=== PATIENT | male | born 1995 | race Caucasian/White ===

== ENCOUNTER 2018-01-12 14:11 | Emergency (ER) | payer BC ==
[2018-01-12 14:59] VITALS: BP 109/63
[2018-01-12] MEDS ORDERED: HYDROcodone/ACETAMIN 5-325 MG* 1 TAB PO ONE (15:07)
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
== END 2018-01-12 15:17 | disposition home health service (06) ==
LOC: UCCORT 14:11
CPT/HCPCS: 99202; G0463

== ENCOUNTER 2019-03-12 11:58 | Emergency (ER) | payer BC ==
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
[2019-03-12 14:14] LABS: Hematocrit 50 % (42-52); Hemoglobin 18.1 g/dL (14.0-18.0); Mean Corpuscular HGB Conc 36 g/dL (31-36); Mean Corpuscular Hemoglobin 30 pg (27-31); Mean Corpuscular Volume 83 fL (80-94); Mean Platelet Volume 8.4 fL (7.4-10.4); Platelet Count 237 10^3/uL (150-450); Red Blood Count 6.02 10^6 /uL (4.18-5.48); Red Cell Distribution Width 13 % (10-15); White Blood Count 7.5 10^3/uL (3.5-10.8)
[2019-03-12 14:24] LABS: Albumin 5.1 g/dL (3.2-5.2); Albumin/Globulin Ratio 1.6 (1-3); BUN/Creatinine Ratio 18.2 (8-20); Calcium 10.7 mg/dL (8.6-10.3); EGFR African American 128.7 (>60); EGFR Non-African American 106.4 (>60); Globulin 3.2 g/dL (2-4); Potassium 4.9 mmol/L (3.5-5.0); Total Bilirubin 0.5 mg/dL (0.2-1.0); Total Protein 8.3 g/dL (6.4-8.9)
[2019-03-12] MEDS: Cephalexin CAP* 500 MG PO ONE (16:28)
[2019-03-12] MEDS: Sulfamethox/Trimethoprim DS 800/160* TAB PO ONE (16:28)
[2019-03-12] MEDS: NS 0.9% 1000 ML** 2,000 ML IV ONE (16:28)
[2019-03-12 17:31] LABS: Hematocrit 47 % (42-52); Hemoglobin 16.6 g/dL (14.0-18.0); Mean Corpuscular HGB Conc 36 g/dL (31-36); Mean Corpuscular Hemoglobin 30 pg (27-31); Mean Corpuscular Volume 84 fL (80-94); Platelet Count 201 10^3/uL (150-450); Red Cell Distribution Width 13 % (10-15); White Blood Count 6.8 10^3/uL (3.5-10.8)
[2019-03-12 18:13] VITALS: BP 134/91
== END 2019-03-12 18:12 | disposition home or self-care (01) ==
LOC: ED 11:58
DX: R21 Rash and other nonspecific skin eruption (principal); E86.0 Dehydration; E10.65 Type 1 diabetes mellitus with hyperglycemia; R71.8 Other abnormality of red blood cells; Z88.0 Allergy status to penicillin; Z79.4 Long term (current) use of insulin; M79.89 Other specified soft tissue disorders
CPT/HCPCS: 36415; 80053; 82668; 85027; 96360; 99282; A9270-GY

== ENCOUNTER 2019-07-13 08:03 | Emergency (ER) | payer BC ==
[2019-07-13 08:35] VITALS: BP 127/79
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
== END 2019-07-13 09:05 | disposition home or self-care (01) ==
LOC: UCCORT 08:03
DX: S63.502A Unspecified sprain of left wrist, initial encounter (principal); E10.9 Type 1 diabetes mellitus without complications; Z88.0 Allergy status to penicillin; Z79.4 Long term (current) use of insulin; X50.0XXA Overexertion from strenuous movement or load, initial encounter; Y92.9 Unspecified place or not applicable
CPT/HCPCS: 99211; G0463